=== PATIENT | female | born 2000 ===

== ENCOUNTER 2024-05-06 11:03 | Outpatient (CLI) | payer OTHER | END 2024-05-06 11:05 | disposition home or self-care (01) | LOC: PRENATAL 11:03 | PROVIDERS: ATTEND Obstetrics & Gynecology Maternal & Fetal Medicine | DX: O44.00 Complete placenta previa NOS or without hemorrhage, unspecified trimester (principal); Z3A.20 20 weeks gestation of pregnancy ==

== ENCOUNTER 2024-08-03 10:28 | Outpatient (CLI) | payer OTHER | END 2024-08-03 10:29 | disposition home or self-care (01) | LOC: PRENATAL 10:28 | DX: O26.849 Uterine size-date discrepancy, unspecified trimester (principal); O36.8199 Decreased fetal movements, unspecified trimester, other fetus; Z3A.33 33 weeks gestation of pregnancy ==